=== PATIENT | female | born 1960 | race Caucasian/White ===

== ENCOUNTER → 2018-04-10 13:45 | Outpatient (CLI) | payer SELFPAY ==
--- NOTE | 2018-04-10 13:45 | EMB_PTH ---
PATIENT: MARLEN KEATING LOC: [facility] U#:[id number] AGE/SX: 64/F ROOM: RE04/10/[address]: Dr. Meir Mora MD : 1960 BED: DIS: SPEC #: [id number] RECD: 04/10/18 18:08 STATUS: SARA RUTHIE #: [id number] CHRISTI: 04/10/18 13:[address]: Meir Mora DEPT: SURGICAL PATHOLOGY RECD BY: Carlyle Rogers Tissues: Endometrium, NOS Procedures: Surgery Specimen Level IV HEADER OPERATION: Endometrial biopsy PRE-OP DIAGNOSIS: N95.0, N93.9 TISSUE SUBMITTED: Endometrial biopsy MICROSCOPIC DIAGNOSIS Endometrial biopsy: Proliferative endometrium. TWYLA:ibeth 04/12/18 MICROSCOPIC DESCRIPTION Slides are reviewed. GROSS DESCRIPTION Received is one container labeled with the patient's name and not further designated. The specimen consists of multiple irregular and mucoid fragments of light to dark sands soft tissue that in aggregate measure 2.5 x 2 x 0.2 cm. The specimen is totally submitted in one cassette. / AM:ibeth 04/11/18 TC:4 CPT: 07470
== END ==
PROVIDERS: Referring Provider Obstetrics & Gynecology; Visit Provider Obstetrics & Gynecology
DX: N95.0 Postmenopausal bleeding (principal); N93.9 Abnormal uterine and vaginal bleeding, unspecified
CPT/HCPCS: 88305

== ENCOUNTER 2018-06-10 09:47 | Day surgery (SDC) | payer SELFPAY ==
[2018-06-05 17:10] LABS: Hematocrit 39.5 % (37-47); Mean Corp Hgb Conc 32.9 g/gl (32-36); Mean Corpuscular Hgb 29.1 pg (27.0-32.0); Mean Corpuscular Volume 88.6 fL (81-99); Mean Platelet Vol. 10.5 fl (6.2-12.0); Platelet Count 239 K/mm3 (150-450); RBC Distribution Width CV 13.5 % (11.6-14.6); RBC Distribution Width SD 43.4 fl (35.1-43.9); Red Blood Count 4.46 M/mm3 (4.2-5.4); White Blood Count 5.2 K/mm3 (4.4-11.0)
[2018-06-05 17:12] LABS: Scan Indicated on CBC? Y/N NO
[2018-06-05 17:16] LABS: International Normalized Ratio 1.1; Prothrombin Time (Protime)PT. 13.8 SECONDS (11.7-14.9)
[2018-06-05 17:17] LABS: Partial Thromboplast Time 28.9 Seconds (24.1-36.2)
[2018-06-05 17:38] LABS: ALB/GLOB Ratio 1.1 RATIO (0.9-2.4); AST(SGOT) 16 U/L (15-37); Alanine Aminotransfer ALT/SGPT 13 U/L (13-56); Alkaline Phosphatase 60 U/L (45-117); Anion Gap 9 (5-15); BUN 14 mg/dL (7-18); BUN/Creat Ratio 15.8 RATIO (10-20); Calcium,Total 8.5 mg/dL (8.5-10.1); Chloride 105 mmol/L (98-107); Creatinine, Serum 0.89 mg/dL (0.55-1.02); EST Glomerular Filtration Rate 70 mL/min (>60); Est Glom Filt Rate - Afr Amer 85 mL/min (>60); Globulin 3.5 g/dL (2.2-4.2); Glucose 88 mg/dL (74-106); Potassium 3.7 mmol/L (3.5-5.1); Protein, Total 7.5 g/dL (6.4-8.2); Sodium Level 142 mmol/L (136-145)
--- NOTE | 2018-06-09 15:36 | PCM.HP.BLA ---
History and Physical Date of Admission: 06/10/18 Surgical History and Physical Gayle Arrieta, a 58 year old female 5 0 2 0 5, presents for D and C and hysteroscopy on June 10, 2018 at 11:20. -- GRAVEL WEIGHER Bleeding -- GRAVEL WEIGHER which began several weeks ago. Gayle claims it started suddenly. It occurs intermittantly. It is located in the lower abdomen. Gayle indicates some cramping. Gayle characterizes the cramping as sharp. Gayle characterizes the quality of bleeding as heavy. Additional comments are: Referred by Paige DING; Additional comments are: u/s at [facility] showed 7 cm uterus and 5 mm EM stripe. MEDICATIONS HISTORY: Current medications prescribed by our practice are: 1. Provera 10 mg tablet, One pill by mouth once a day ALLERGIES: No Known Allergies, Adhesive Tape and Rash Infections - Chicken pox, Mumps and Measles Illnesses - no serious past illnesses Accidents - None Hospitalizations - see surgery Review of Systems: GENERAL - Denies fever, or chills SKIN - Denies skin changes EYES - Denies visual changes EARS - Denies difficulty hearing NOSE - Denies nasal congestion or bleeding MOUTH - Denies sore throat or difficulty swallowing NECK - Denies pain or swelling RESPIRATORY - Denies shortness of breath or wheezing CARDIOVASCULAR - Denies palpitations or chest pain GASTROINTESTINAL - Denies nausea, vomiting, diarrhea, constipation GENITOURINARY - Denies dysuria, frequency of urination, incontinence of urine MUSCULOSKELETAL - Denies joint or muscle pain NEUROLOGICAL - Denies localized numbness or weakness PSYCHIATRIC - Denies depression or anxiety ENDOCRINE - Denies heat or cold intolerance, weight loss or gain HEMATO-IMMUNOLOGIC - Denies excessive bleeding with cuts SOCIAL HISTORY: Alcohol Use - None Smoking - Never Diet - no particular diet Lifestyle - moderate stress lifestyle and Exercise - active Seat Belt Use - always Employer - [employer] Illicit Drug Use - None Sexual Activity - Spouse-Sig Other Name - Mario Spouse-Sig Other Occupation - [employer] - Prior Tubal FAMILY HISTORY: MENSTRUAL HISTORY: LMP Known?- DefiniteAmount/Duration - 2 weeks, Regularity - Irregular, Frequency - variable days, LMP - 03/18/18, Age Onset Menarche - 15 PAST PREGNANCIES: Total Pregnancies - 7; Full Term Pregnancies - 5; Premature - 0; Abortions, Induced - 0; Abortions, Spontaneous - 2; Ectopics - 0; Multiple Births - 0; Living Children - 5 SURGICAL HISTORY: 1. 05/25/1992 ; Manuel Duff MD 2. 09/17/1993 ; Manuel Duff MD 3. 07/16/1996 ; Dr. Au 4. 01/21/1998 ; Dr. Ortega 5. 11/09/2000 and Tubal ; Dr. Au 6. 1978 and 2011 Hernia Repair ; Dr. Cullen PHYSICAL EXAM BP- 126/78 Sitting, Right arm, regular cuff Weight- 136.31881 lbs Height- 59.5 inch BMI:27.07 CONSTITUTIONAL - NAD, well nourished, and well developed SKIN - No rash, lesions, or ulcers HEENT - Normocephalic, PERRLA, EOMI NECK - No nodes, no nuchal rigidity and thyroid normal size and texture LYMPH NODES - Palpation of lymph nodes in neck and groins within normal limits LUNGS - CTA x2 without wheezes, crackles or rales CARDIAC - Regular rate and rhythm without rubs, murmurs, or gallops ABDOMEN - Without hepatosplenomegaly, distention, masses, rebound, or guarding; normal bowel sounds; no hernias EXTREMITIES - No edema or calf tenderness NEUROLOGICAL - Cranial nerves II-XII grossly intact PSYCHIATRIC - A and O to time, place, person, mood and affect External Genitial Vagina - non-tender without lesions Urethra/Urethral Meatus - non-tender Bladder - non-tender Vagina - vaginal woods are pink and moist without loss of rugae and no evidence of atropy and blood in vagina Cervix - without cervical motion tenderness and has normal size and features without evident lesions Uterus - enlarged uterus 10 wks, wt 175-275 g Adnexa - clear without masses or tenderness ASSESSMENT/PLAN: 1. GRAVEL WEIGHER Bleeding EMBx not conclusive. Uterus sounded to 9 cm but u/s at [facility] indicated 7 cm uterus. Will proceed with D and C and Hysteroscopy. Discussed RBAs.
[2018-06-10] VITALS (7 sets, daily range): BP systolic 100–123; BP diastolic 54–66; PULSE 63–85; RESP 14–16; TEMP 36.5–37.1; O2SAT 98–100; BMI 26.8
--- NOTE | 2018-06-10 11:20 | CER_PTH ---
PATIENT: MARLEN KEATING LOC: [facility] [place] U#:[id number] AGE/SX: 58/F ROOM: RE06/10/[address]: Dr. Meir Mora MD : 1960 BED: DIS: 06/10/2018 SPEC #: [id number] RECD: 06/10/18 15:37 STATUS: SARA RUTHIE #: [id number] CHRISTI: 06/10/18 11:[address]: Meir Mora DEPT: SURGICAL PATHOLOGY RECD BY: Vineet Rogers ENTERED: 06/11/18 12:05 SP TYPE: CERV OTHR DR: NIKKO Melgoza Tissues: A - Uterine cervix, NOS B - Endometrium, NOS Procedures: Surgery Specimen Level IV HEADER OPERATION: Hysteroscopy, dilation and curettage PRE-OP DIAGNOSIS: Postmenopausal bleeding TISSUE SUBMITTED: A - Endocervical curettings, B - Endometrial curettings MICROSCOPIC DIAGNOSIS A. Endocervical curettings: Scant desquamated benign ecto- and endocervical epithelial cells. B. Endometrial curettings: Fragments of inactive endometrium and blood clots. TWYLA:ibeth 06/12/18 COMMENT Clinical correlation and appropriate follow up are necessary. Please make reference to previous specimen ([id number]) endometrial biopsy with diagnosis of proliferative endometrium. MICROSCOPIC DESCRIPTION Slides are reviewed. GROSS DESCRIPTION A - Received in fixative is one container labeled with the patient's name and designated endocervical curettings. The specimen consists of a few fragments of mucoid tissue submitted for cell block preparation. B - Received in fixative is one container labeled with the patient's name and designated EMC. The specimen consists of multiple fragments of hemorrhagic mucoid tissue that in aggregate measure 3 x 2.5 x 0.2 cm. The specimen is totally submitted in one cassette. / TWYLA:ibeth 06/11/18 TC:4 CPT: 80591 x2
--- NOTE | 2018-06-10 12:23 | PCM.OPRPT ---
Report of Operation Date of Procedure: 06/10/18 Pre-Operative Diagnosis: Postmenopausal Bleeding Post-Operative Diagnosis: Postmenopausal Bleeding Surgery/Procedure Performed:: Hysteroscopy, Fractional Dilation and Curettage Description of Surgical Findings:: 8 cm endometrial cavity without polyps or fibroids present. Sharply anteverted and sounded to about 8 cm. Cervix high and vagina with little movement which would make robotic hysterectomy the method of choice should hysterectomy be necessary. Type of Anesthesia:: MAC Anesthesiologist: Jeanne Hooks Specimen's removed: Endometrial and endocervical curettings Estimated Blood Loss (mL): Minimal Fluids Replaced: Crystalloid Description of Procedure: Surgeon: Meir Mora MD, FACOG Indications: This is a 58 year old patient who has the above diagnosis. The patient has been counseled regarding the risk and indications of this procedure including the possibility of bleeding, infection, and injury to surrounding structures such as bowel bladder. All questions were answered and we consider the patient well-informed. Procedure: The patient was taken to the operating room where after induction of general anesthesia, she was placed in the dorsolithotomy position and prepped and draped in the usual sterile fashion. Anterior cervix was grasped with the tenaculum and dilated to about 4-5 mm. Endocervical curettings were obtained. A 3 mm hysteroscope was placed in the uterus of the above findings were noted. Cervix was dilated to about 7-8 mm and uterus was gently curetted removing all contents. Hysteroscope was reinserted and all material was noted to be removed. In the course of the procedure approximately 100 cc of saline distending media was used and virtually all of this was recovered. Patient tolerated procedure well was taken to recovery room in satisfactory condition sponge instrument and needle counts were all reportedly correct. Estimated blood loss for the case was minimal. Specimens to pathology was endometrial and endocervical curettings Grafts/Implants Used: None - Complications None - Admit VTE Documentation VTE Present on Admission: Yes VTE Mechan Device Prophylaxis: SCD's VTE Pharm Prophylaxis ordered?: No Reason prophylaxis not ordered:: Treatment Not Indicated
--- NOTE | 2018-06-10 12:27 | DCINST_ITS ---
Discharge Diet: No Restrictions Discharge Activity: Return to Normal Activity, May Shower, May Take a Tub Bath May resume sexual activity in: 2 weeks Call your doctor if you observe: Fever of 101 or Higher, Inability to urinate, Inability to have a bowel movement, Using more than one pad per hour Allergies/Adverse Reactions: Allergies adhesive tape Adverse Reaction (Verified 06/03/18 10:58) redness Medications to take at Discharge NK 06/03/18 Primary Care Physician: Paige Stoll PA [Primary Care Provider] - Test Results: Test results from this visit will be discussed in further detail at your follow- up appointment, if applicable. Please Follow Up With: Meir Mora MD When: 2-3 weeks
== END 2018-06-10 14:23 | disposition home or self-care (01) ==
LOC: SDC 09:50 → AC 09:53
PROVIDERS: Family Provider Physician Assistant; PCP Physician Assistant; Referring Provider Obstetrics & Gynecology; Visit Provider Obstetrics & Gynecology
PROC: 0UDB8ZZ Extraction of Endometrium, Via Natural or Artificial Opening Endoscopic (ICD-10-PCS; CPT 58558; principal; 2018-06-10 11:10)
DX: N95.0 Postmenopausal bleeding (principal)
CPT/HCPCS: 00952; 58558; 36415; 80053; 85027; 85610; 85730; 86850; 86900; 88305; J7120; J2405

== ENCOUNTER 2021-10-30 18:39 | Inpatient (IN) | payer OTHER, SELFPAY ==
[2021-10-30] VITALS (13 sets, daily range): BP systolic 107–150; BP diastolic 57–74; PULSE 61–117; RESP 12–20; TEMP 35.9–37.2; O2SAT 95–99; BMI 31.0; BMI 28.0
--- NOTE | 2021-10-30 18:54 | EKG12_ITS ---
Test Reason : Blood Pressure : / mmHG Vent. Rate : 108 BPM Atrial Rate : 108 BPM P-R Int : 184 ms QRS Dur : 104 ms QT Int : 338 ms P-R-T Axes : 051 006 034 degrees QTc Int : 452 ms Sinus tachycardia Possible Left atrial enlargement RSR' or QR pattern in V1 suggests right ventricular conduction delay Marked ST abnormality, possible lateral subendocardial injury Abnormal ECG Confirmed by MADELIN INFANTE, NICK ([id number]), assignment desk editor DEE PASCAL ([id number]) on 11/01/2021 8:43:45 AM Referred By: Confirmed By:NICK YUSUF MD
--- NOTE | 2021-10-30 18:55 | ED.VIS.CHEST ---
HPI History of Present Illness Chief Complaint: Chest Pain Narrative Narrative: 61-year-old female with history of hyperlipidemia presenting with chest pressure which has been ongoing for couple of hours. Patient states she took nothing for this. She states that the chest pressure is 7 of 10 and she feels like she cannot catch her breath. She denies fever, chills, body aches. She does not have any cardiac history. She has a history of GERD for which she is treated. She is never had a stress test. No history of DVT/PE and no risk factors. She does report that her family has cardiac disease however this is later in life in her 70s. [facility] Medical History GERD (gastroesophageal reflux disease) Home Medications NK 06/03/18 [History Last Taken Unknown] Allergy/AdvReac Type Severity Reaction Status Date / Time adhesive tape AdvReac redness Verified 10/30/21 18:42 Family History Other Heart disease Kidney disease Surgical History H/O hernia repair Social History Smoking Status: Never smoker ROS ROS ED Constitutional Constitutional ED: Denies chills or fever(s) Eyes Eyes: Denies blurry vision or change in vision ENT ENT ED: Denies rhinorrhea or sore throat Cardiovascular Cardiovascular: Reports as per HPI Respiratory/Chest Respiratory/Chest: Reports dyspnea; Denies cough Gastrointestinal Gastrointestinal: Denies abdominal pain or constipation Genitourinary Genitourinary ED: Denies dysuria Musculoskeletal Musculoskeletal: Denies arthralgias Integumentary Denies abscess Neurologic Neurologic: Denies headache(s) or paresthesias Psychiatric Psychiatric: Denies anxiety or depression EXAM Physical Exam Const Vital Signs: 10/30/21 18:40 10/30/21 18:44 10/30/21 18:56 Temperature 96.7 F L Temperature Source Temporal Pulse Rate 117 H Respiratory Rate 20 H Respiratory Effort Normal Non-Labored Blood Pressure 150/72 H Blood Pressure Mean 98 Pulse Ox 99 99 Oxygen Delivery Method Room Air Room Air 10/30/21 19:07 10/30/21 19:12 10/30/21 19:39 Temperature Temperature Source Pulse Rate 91 96 96 Respiratory Rate 18 Respiratory Effort Blood Pressure 122/62 H 141/74 H 134/63 H Blood Pressure Mean 86 Pulse Ox 98 Oxygen Delivery Method Room Air 10/30/21 21:00 10/30/21 21:48 Temperature 98.9 F Temperature Source Temporal Pulse Rate 79 79 Respiratory Rate 18 16 Respiratory Effort Blood Pressure 125/65 H 122/59 H Blood Pressure Mean 85 80 Pulse Ox 95 98 Oxygen Delivery Method Room Air Room Air Positive well nourished General Appearance ED: NAD; Negative for pallor HEENT Reports moist mucous membranes normocephalic and atraumatic Eyes PERRL General Eye ED: Negative for pale conjunctiva or scleral icterus Resp normal respiratory effort and clear to auscultation bilaterally Effort and Inspection: Negative for respiratory distress Cardio regular rhythm Rate: tachycardic GI normal to inspection, nondistended, normoactive bowel sounds Neuro oriented x3 and CN's II-XII intact bilaterally Sensorium / Orientation: awake Psych mental status grossly normal Skin General Skin Exam: Negative for jaundice or pallor Heart Score History: Moderately Suspicious ECG: Normal Age: >45 - <65 years Risk Factors: 1 or 2 Risk Factors Troponin: >1 - <3 Normal Limit Score: 4 MDM MDM MDM Narrative Medical decision making narrative: Patient presented with chest pain and shortness of breath. Her initial EKG on my interpretation was sinus rhythm with a ventricular rate of 108 bpm with right bundle branch block noted. There is some artifact in V3 and V5. I had the EKG repeated and it does appear to show sinus rhythm ventricular rate of 91 bpm. Right bundle mervin block noted. There may be some slight depression in V4 through V6. CBC unremarkable. Renal function electrolytes normal with exception of potassium of 2.7. I attempted to replete these orally however the patient kept vomiting. She was given Zofran twice and then Phenergan IM. Chest x-ray on my interpretation shows no acute cardiopulmonary process and the radiologist does agree. D-dimer is negative at 0.27. High-sensitivity troponin initially was 47. At 2 hours this had increased to 122. Patient still claims she is having chest pain at 5/10. Initially she was treated with nitroglycerin however this seemed to make her chest pain worse and she vomited. For this reason she was given morphine 4 mg IV. She did complain of pain again and this was repeated. I spoke with Dr. Gonzalez who recommended admission to the ICU since she is does not have her pain controlled and her troponins are going up. Patient started on heparin drip in the ER. She will also need a potassium repleted peripherally. Discussed with hospitalist for admission. Impression: 1 chest pain 2 NSTEMI 3. Hypokalemia Lab Data Attestation: I reviewed the patient's lab results. Labs: Laboratory Results - last 24 hr 10/30/21 10/30/21 10/30/21 18:45 18:45 18:45 WBC 7.3 RBC 4.72 Hgb 15.0 Hct 42.4 MCV 89.8 MCH 31.8 MCHC 35.4 RDW Std Deviation 39.7 RDW Coeff of Elisha 12.0 Plt Count 253 MPV 10.2 Immature Gran % (Auto) 0.400 Neut % (Auto) 52.6 Lymph % (Auto) 37.9 [place] % (Auto) 7.1 Eos % (Auto) 1.9 Baso % (Auto) 0.1 Absolute Neuts (auto) 3.8 Absolute Lymphs (auto) 2.76 Nucleated RBC % 0 PT INR APTT D-Dimer Quant (PE/DVT) < 0.27 L Sodium 137 Potassium 2.7 L* Chloride 101 Carbon Dioxide 26.0 Anion Gap 10 BUN 13 Creatinine 0.77 Estim Creat Clear Calc 86.56 Est GFR (MDRD) Af Amer 99 Est GFR (MDRD) Non-Af 82 BUN/Creatinine Ratio 17.0 Glucose 119 H Calcium 8.7 Troponin I High Sens 47 10/30/21 10/30/21 18:45 21:05 WBC RBC Hgb Hct MCV MCH MCHC RDW Std Deviation RDW Coeff of Elisha Plt Count MPV Immature Gran % (Auto) Neut % (Auto) Lymph % (Auto) [place] % (Auto) Eos % (Auto) Baso % (Auto) Absolute Neuts (auto) Absolute Lymphs (auto) Nucleated RBC % PT 12.8 INR 1.0 APTT 27.6 D-Dimer Quant (PE/DVT) Sodium Potassium Chloride Carbon Dioxide Anion Gap BUN Creatinine Estim Creat Clear Calc Est GFR (MDRD) Af Amer Est GFR (MDRD) Non-Af BUN/Creatinine Ratio Glucose Calcium Troponin I High Sens 122 H* Radiography Diagnostic Testing: Clinical Impression(s) from Imaging Studies Chest X-Ray 10/30/21 19:00 IMPRESSION: No acute cardiopulmonary process. Electronically Signed: Mack Clarke MD at 19:52 EDT , Discharge Plan Disposition Disposition: Acute Care [facility] Discharge Date/Time: 10/30/21 22:34
--- NOTE | 2021-10-30 18:56 | EKG12_ITS ---
Test Reason : cp Blood Pressure : / mmHG Vent. Rate : 091 BPM Atrial Rate : 091 BPM P-R Int : 144 ms QRS Dur : 098 ms QT Int : 378 ms P-R-T Axes : 064 018 052 degrees QTc Int : 464 ms Normal sinus rhythm RSR' or QR pattern in V1 suggests right ventricular conduction delay Nonspecific ST abnormality Abnormal ECG Confirmed by MADELIN INFANTE, NICK ([id number]), video editor DEE PASCAL ([id number]) on 11/01/2021 8:46:11 AM Referred By: Daniel Confirmed By:NICK YUSUF MD
--- NOTE | 2021-10-30 19:00 | RAD_ITS ---
STUDY: X-RAY CHEST REASON FOR EXAM: Female, 61 years old. chest pain TECHNIQUE: 1 view COMPARISON: None. FINDINGS: Cardiomediastinal silhouette is unremarkable. Costophrenic angles are sharp. Lungs are clear. The trachea is midline. There is no pneumothorax. The bones are grossly intact. RAD/Chest 1 View (Portable) IMPRESSION: No acute cardiopulmonary process. Electronically Signed: Mack Clarke MD at 19:52 EDT ,
--- NOTE | 2021-10-30 19:00 | EKG12_ITS ---
Test Reason : cp repeat Blood Pressure : / mmHG Vent. Rate : 114 BPM Atrial Rate : 114 BPM P-R Int : 136 ms QRS Dur : 096 ms QT Int : 480 ms P-R-T Axes : 052 013 043 degrees QTc Int : 661 ms Sinus tachycardia RSR' or QR pattern in V1 suggests right ventricular conduction delay ST & T wave abnormality, consider lateral ischemia Prolonged QT Abnormal ECG Confirmed by MADELIN INFANTE, NICK ([id number]), scientific editor DEE PASCAL ([id number]) on 11/01/2021 8:44:08 AM Referred By: Daniel Confirmed By:NICK YUSUF MD
[2021-10-30 19:06] LABS: Absolute Lymphocyte Count 2.76 X10^3/uL (0.83-4.51); Absolute Neutrophil Count 3.8 X10^3/uL (2.0-7.7); Basophil# 0.01 X10^3/uL; Basophil% 0.1 % (0-1); Eosinophil# 0.14 X10^3/uL; Eosinophils% 1.9 % (0-5); Hematocrit 42.4 % (37-47); Lymphocyte # 2.76 X10^3/ul (0.83-4.51); Lymphocyte % 37.9 % (19-41); Mean Corp Hgb Conc 35.4 g/dL (32-36); Mean Corpuscular Hgb 31.8 pg (27.0-32.0); Mean Corpuscular Volume 89.8 fL (81-99); Mean Platelet Vol. 10.2 fl (6.2-12.0); Monocyte# 0.52 X10^3/uL; Monocyte% 7.1 % (0-10); NRBC Flagged by Analyzer 0 % (0-5); Neutrophil # 3.82 X10^3/uL (2.7-7.7); Neutrophil % 52.6 % (47-70); Platelet Count 253 K/mm3 (150-450); RBC Distribution Width SD 39.7 fl (35.1-43.9); Red Blood Count 4.72 M/mm3 (4.2-5.4); White Blood Count 7.3 K/mm3 (4.4-11.0)
[2021-10-30] MEDS: Aspirin 81 MG TAB.CHEW 324 MG PO (19:07)
[2021-10-30] MEDS: Nitroglycerin SL (ED/IMG/CATH) 0.4 MG TABLET SL ×2 (19:07→19:12)
[2021-10-30 19:17] LABS: D-Dimer Quantitative (DVT/PE) < 0.27 FEU/ug/m (0.27-0.49)
[2021-10-30] MEDS: Morphine 4 MG/ML Syringe IV ×2 (19:28→20:45)
[2021-10-30] MEDS: Ondansetron 4 MG/2 ML Vial IV ×2 (19:28→20:45)
[2021-10-30 19:29] LABS: Anion Gap 10 (5-15); BUN 13 mg/dL (7-18); Calcium,Total 8.7 mg/dL (8.5-10.1); Chloride 101 mmol/L (98-107); Creatinine, Serum 0.77 mg/dL (0.55-1.02); EST Glomerular Filtration Rate 82 mL/min (>60); Est Glom Filt Rate - Afr Amer 99 mL/min (>60); Estimated Creatinine Clearance 86.56 ml/min; Glucose 119 mg/dL (74-106); Potassium 2.7 mmol/L (3.5-5.1); Sodium Level 137 mmol/L (136-145); Troponin-I HS (w/2H Reflex) 47 pg/mL (3.0-54.0)
[2021-10-30] MEDS: Potassium Chloride Oral Soln 20 MEQ/15 ML UDC 40 MEQ PO (19:59)
--- NOTE | 2021-10-30 20:48 | ED.RN ---
Pt c/o nausea and chest pain that started again. MD notified, orders placed for zofran and morphine.
[2021-10-30 21:00] LABS: Reflex Troponin-HS? (from REC) Y
[2021-10-30 21:39] LABS: Troponin-I HS 122 pg/mL (3.0-54.0)
--- NOTE | 2021-10-30 21:39 | ED.RN ---
CRITICAL TROP CALLED 122 DR[address] SANTIAGO AWARE
--- NOTE | 2021-10-30 21:56 | HP.PCM.HOS_ITS ---
HPI - General General Date of Admission: 10/30/21 Date of Service: 10/30/21 Chief Complaint: CHEST PAIN HPI Narrative MARLEN KEATING, is a 61 F with a significant history of GERD who presents to the emergency department with substernal chest pressure that started about an hour and a half before presentation. Her chest pressure radiated to her throat where she has a feeling of a lump. Her chest pain is episodic. She rates it as 8 on a scale of 1-10. Associated with her symptoms is shortness of breath. At the emergency department she was given nitroglycerin but that did not help with her pain. She did end up having multiple episodes of nausea and vomiting after taking the nitroglycerin. Family is questioning the involvement of food poisoning as his symptoms started about 4 hours after going to a friend's place to eat. However her ate the same food and does not have similar symptoms. [facility] Medical History GERD (gastroesophageal reflux disease) Home Medications NK 06/03/18 [History Last Taken Unknown] Allergy/AdvReac Type Severity Reaction Status Date / Time adhesive tape AdvReac redness Verified 10/30/21 18:42 Family History Other Heart disease Kidney disease Surgical History H/O hernia repair Social History Smoking Status: Never smoker ROS ROS Narrative Pertinent positives and pertinent negatives as noted in HPI. All other systems were reviewed and are negative. Vital Signs Vital Signs Vital Signs: 10/30/21 18:40 10/30/21 18:44 10/30/21 18:56 Temperature 96.7 F L Temperature Source Temporal Pulse Rate 117 H Respiratory Rate 20 H Respiratory Effort Normal Non-Labored Blood Pressure 150/72 H Blood Pressure Mean 98 Pulse Ox 99 99 Oxygen Delivery Method Room Air Room Air 10/30/21 19:07 10/30/21 19:12 10/30/21 19:39 Temperature Temperature Source Pulse Rate 91 96 96 Respiratory Rate 18 Respiratory Effort Blood Pressure 122/62 H 141/74 H 134/63 H Blood Pressure Mean 86 Pulse Ox 98 Oxygen Delivery Method Room Air 10/30/21 21:00 10/30/21 21:48 Temperature 98.9 F Temperature Source Temporal Pulse Rate 79 79 Respiratory Rate 18 16 Respiratory Effort Blood Pressure 125/65 H 122/59 H Blood Pressure Mean 85 80 Pulse Ox 95 98 Oxygen Delivery Method Room Air Room Air Weight Weight: 69.7 kg Body Mass Index (BMI) 31.0 Physical Exam Narrative Physical exam: General: Patient in bed uncomfortable from nausea. Head: Normocephalic, atraumatic, no tenderness Eyes: Vision is grossly intact. EOMI ENT, no trauma, moist mucous membranes, no rhinorrhea Neck: Nontender, full range of motion, no spinal tenderness, deformities, step- off CVS: Regular rate and rhythm. S1-S2 present. No murmur, gallop or rub. Respiratory : clear to auscultation bilaterally, chest wall nontender, no wheezing Abdomen: Soft, nontender, nondistended, normal bowel sounds, no masses : Deferred Back: Nontender, no CVA tenderness, no midline spinal tenderness, deformities, step-offs Extremities: Nontender full range of motion, no trauma Skin: Normal color, no trauma, abrasions Neuro: Alert, oriented, cranial nerves II through XII grossly intact. Psychiatry: Normal mood. Normal affect. Not depressed. Not anxious. Results Lab / Micro Data Result Diagrams: 10/30/21 18:45 10/30/21 18:45 Labs: Laboratory Results - last 24 hr 10/30/21 18:45: WBC 7.3, RBC 4.72, Hgb 15.0, Hct 42.4, MCV 89.8, MCH 31.8, MCHC 35.4, RDW Std Deviation 39.7, RDW Coeff of Elisha 12.0, Plt Count 253, MPV 10.2, Immature Gran % (Auto) 0.400, Neut % (Auto) 52.6, Lymph % (Auto) 37.9, [place] % (Auto) 7.1, Eos % (Auto) 1.9, Baso % (Auto) 0.1, Absolute Neuts (auto) 3.8, Absolute Lymphs (auto) 2.76, Nucleated RBC % 0 10/30/21 18:45: D-Dimer Quant (PE/DVT) < 0.27 L 10/30/21 18:45: Sodium 137, Potassium 2.7 L*, Chloride 101, Carbon Dioxide 26.0, Anion Gap 10, BUN 13, Creatinine 0.77, Estim Creat Clear Calc 86.56, Est GFR (MDRD) Af Amer 99, Est GFR (MDRD) Non-Af 82, BUN/Creatinine Ratio 17.0, Glucose 119 H, Calcium 8.7, Troponin I High Sens 47 10/30/21 21:05: Troponin I High Sens 122 H* Radiology Impression Chest X-Ray 10/30/21 19:00 IMPRESSION: No acute cardiopulmonary process. Electronically Signed: Mack Clarke MD at 19:52 EDT , Assessment & Plan Assessment/Plan (1) NSTEMI, initial episode of care: PLAN: Plan NSTEMI Emergency department the discussed the case with cardiology interventionalist who recommended ICU admission. Patient will be admitted to the intensive care unit accordingly. Actual CXR image was independently visualized. No acute cardiopulmonary process was noted. Actual EKG tracing was independently visualized. EKG tracing showed ST depressions in lead III, V3, V5 and V6. Anterior inversions in V4 V5 and V6. Patient was given aspirin 324 mg in the emergency department. ASA 81 mg p.o. daily ordered Morphine as needed for pain ordered We will check lipid panel. Initial high-sensitivity troponin was 47. Repeat was 122, trend. Statin: High intensity statin ordered. Anticoagulation: Heparin drip started at the emergency department and continued. Stat EKG as needed for chest pain. Keep npo for possible heart cath. Hypokalemia Potassium of 2.7 at the emergency department. Given p.o. potassium in the emergency department which patient might have vomited. IV potassium ordered. Supportive treatment with IV fluids. Check magnesium level. DVT prophylaxis ordered. Charges/Coding Visit Charges Inpatient E&M: 72920 Init Hosp L3
[2021-10-30 22:13] LABS: Partial Thromboplast Time 27.6 Seconds (24.1-36.2); Prothrombin Time (Protime)PT. 12.8 SECONDS (11.7-14.9)
[2021-10-30] MEDS: HEPARIN/D5w 25,000 UNITS 25,000 UNITS/250 ML IV.SOLN. 10 UNITS CONT INF (22:27)
[2021-10-30] MEDS: proMETHazine 25 MG/ML Syringe 12.5 MG IM (22:32)
--- NOTE | 2021-10-30 23:00 | EKG12_ITS ---
Test Reason : CP Blood Pressure : / mmHG Vent. Rate : 063 BPM Atrial Rate : 063 BPM P-R Int : 142 ms QRS Dur : 092 ms QT Int : 408 ms P-R-T Axes : 059 000 026 degrees QTc Int : 417 ms Normal sinus rhythm Incomplete right bundle branch block Confirmed by BAILEE INFANTE, MEL ([id number]), business editor DEE PASCAL ([id number]) on 11/02/2021 11:02:05 AM Referred By: STEPHANI Confirmed By:MEL MOROCHO MD
[2021-10-30] MEDS: Potassium Chloride 10mEq/100mL 10 MEQ/100 ML IV.SOLN. 100 MEQ IV BOLUS (23:28)
[2021-10-30] MEDS: 0.9% Normal Saline 1,000 ML 100 ML IV (23:28)
[2021-10-31] VITALS (29 sets, daily range): BP systolic 99–133; BP diastolic 46–110; PULSE 56–93; RESP 11–31; TEMP 36.6; O2SAT 95–99
[2021-10-31] MEDS: Potassium Chloride 10mEq/100mL 10 MEQ/100 ML IV.SOLN. 100 MEQ IV BOLUS ×3 (00:30→03:08)
[2021-10-31 01:41] LABS: Troponin-I HS 129 pg/mL (3.0-54.0)
[2021-10-31 04:55] LABS: Absolute Lymphocyte Count 1.27 X10^3/uL (0.83-4.51); Absolute Neutrophil Count 9.9 X10^3/uL (2.0-7.7); Basophil# 0.01 X10^3/uL; Basophil% 0.1 % (0-1); Hemoglobin 13.3 g/dL (12.0-15.0); Lymphocyte # 1.27 X10^3/ul (0.83-4.51); Lymphocyte % 10.7 % (19-41); Mean Corp Hgb Conc 33.3 g/dL (32-36); Mean Corpuscular Hgb 30.4 pg (27.0-32.0); Mean Corpuscular Volume 91.5 fL (81-99); Mean Platelet Vol. 9.7 fl (6.2-12.0); Monocyte# 0.62 X10^3/uL; Monocyte% 5.2 % (0-10); NRBC Flagged by Analyzer 0 % (0-5); Neutrophil # 9.91 X10^3/uL (2.7-7.7); Neutrophil % 83.6 % (47-70); Platelet Count 236 K/mm3 (150-450); RBC Distribution Width CV 12.1 % (11.6-14.6); RBC Distribution Width SD 40.9 fl (35.1-43.9); Red Blood Count 4.37 M/mm3 (4.2-5.4); White Blood Count 11.9 K/mm3 (4.4-11.0)
[2021-10-31 05:14] LABS: Anion Gap 4 (5-15); BUN 9 mg/dL (7-18); BUN/Creat Ratio 12.4 RATIO (10-20); Calcium,Total 8.6 mg/dL (8.5-10.1); Chloride 107 mmol/L (98-107); Cholesterol 303 mg/dL (200); Creatinine, Serum 0.72 mg/dL (0.55-1.02); EST Glomerular Filtration Rate 87 mL/min (>60); Est Glom Filt Rate - Afr Amer 106 mL/min (>60); Estimated Creatinine Clearance 60.43 ml/min; Glucose 124 mg/dL (74-106); High Density Lipoprotein 58 mg/dL; Potassium 4.3 mmol/L (3.5-5.1); Sodium Level 140 mmol/L (136-145); Triglycerides 65 mg/dL; Very Low Density Lipoprotein 13 mg/dL (5-40)
[2021-10-31] MEDS: Heparin Injection (Vial) 5,000 UNIT/ML VIAL IV (05:59)
--- NOTE | 2021-10-31 07:22 | PN.HOSP_ITS ---
Subjective Subjective Patient is a 61-year-old female who presented with chest pain. Was found to have elevated troponin as well as ischemic changes on EKG consistent with acute non-STEMI admitted to the intensive care unit for further management Objective Data Objective Data Vital Signs: Vital Signs Temp Pulse Resp BP Pulse Ox O2 Del Method 96.9 F L 63 11 L 102/60 96 Room Air 10/30/21 22:49 10/31/21 07:18 10/31/21 07:04 10/31/21 07:04 10/31/21 07:04 10/31/21 07:04 Oxygen Delivery Method Room Air Weight: 63.7 kg Body Mass Index (BMI) 28.0 Intake & Output: Intake and Output for Last 24 Hours 10/29/21 10/30/21 10/31/21 23:59 23:59 23:59 Intake Total 475.5 / 475.5 Balance 475.5 / 475.5 Lab / Micro Data Result Diagrams: 10/31/21 04:45 10/31/21 04:45 Labs: Laboratory Results - last 24 hr 10/30/21 18:45: WBC 7.3, RBC 4.72, Hgb 15.0, Hct 42.4, MCV 89.8, MCH 31.8, MCHC 35.4, RDW Std Deviation 39.7, RDW Coeff of Elisha 12.0, Plt Count 253, MPV 10.2, Immature Gran % (Auto) 0.400, Neut % (Auto) 52.6, Lymph % (Auto) 37.9, [place] % ( Auto) 7.1, Eos % (Auto) 1.9, Baso % (Auto) 0.1, Absolute Neuts (auto) 3.8, Absolute Lymphs (auto) 2.76, Nucleated RBC % 0 10/30/21 18:45: D-Dimer Quant (PE/DVT) < 0.27 L 10/30/21 18:45: Sodium 137, Potassium 2.7 L*, Chloride 101, Carbon Dioxide 26.0, Anion Gap 10, BUN 13, Creatinine 0.77, Estim Creat Clear Calc 86.56, Est GFR (MDRD) Af Amer 99, Est GFR (MDRD) Non-Af 82, BUN/Creatinine Ratio 17.0, Glucose 119 H, Calcium 8.7, Troponin I High Sens 47 10/30/21 18:45: PT 12.8, INR 1.0, APTT 27.6 10/30/21 21:05: Troponin I High Sens 122 H* 10/31/21 01:00: Troponin I High Sens 129 H* 10/31/21 04:45: WBC 11.9 H, RBC 4.37, Hgb 13.3, Hct 40.0, MCV 91.5, MCH 30.4, MCHC 33.3 D, RDW Std Deviation 40.9, RDW Coeff of Elisha 12.1, Plt Count 236, MPV 9.7, Immature Gran % (Auto) 0.400, Neut % (Auto) 83.6 H, Lymph % (Auto) 10.7 L, [place] % (Auto) 5.2, Eos % (Auto) 0.0, Baso % (Auto) 0.1, Absolute Neuts (auto) 9.9 H, Absolute Lymphs (auto) 1.27, Nucleated RBC % 0 10/31/21 04:45: Sodium 140, Potassium 4.3, Chloride 107, Carbon Dioxide 29.0, Anion Gap 4 L, BUN 9, Creatinine 0.72, Estim Creat Clear Calc 60.43, Est GFR (MDRD) Af Amer 106, Est GFR (MDRD) Non-Af 87, BUN/Creatinine Ratio 12.4, Glucose 124 H, Calcium 8.6, Magnesium 2.0, Triglycerides 65, Cholesterol 303 H, LDL Cholesterol 232 H, VLDL Cholesterol 13, HDL Cholesterol 58 10/31/21 04:45: APTT 45.0 H Radiography Diagnostic Testing: Radiology Impression Chest X-Ray 10/30/21 19:00 IMPRESSION: No acute cardiopulmonary process. Electronically Signed: Mack Clarke MD at 19:52 EDT , Physical Exam Narrative GENERAL: cooperative HEENT: Atraumatic; EYES; Anicteric, Normal Conjunctiva NECK; supple, normal thyroid, RESPIRATORY: Diminished to auscultation CARDIOVASCULAR: Regular S1 S2, GI: soft, normoactive bowel sounds, : No Renal angle tenderness; EXTREMITIES: No edema, no clubbing, MUSCULOSKELETAL: no muscle wasting NEURO: Awake; no lateralizing signs. SKIN: No Rash PSYCH; Flat affect Assessment & Plan Assessment/Plan (1) NSTEMI, initial episode of care: PLAN: Plan Patient is a 61-year-old female who presented with chest pain. Was found to have elevated troponin as well as ischemic changes on EKG consistent with acute non-STEMI admitted to the intensive care unit for further management 1. Acute non-STEMI ? Patient has been admitted to the intensive care unit currently being managed with systemic anticoagulation with heparin, high-dose statin therapy, aspirin therapy. Consult placed to cardiology with plans for patient to undergo left heart catheterization with intervention if warranted 2. Hypokalemia ? Corrected per protocol with serial potassium levels ordered 3. Dyspepsia ? Patient to undergo work-up as outpatient 4. DVT prophylaxis ? Patient is on heparin Charges/Coding Visit Charges Inpatient E&M: 37198 Subs Hosp L3
[2021-10-31] MEDS: 0.9% Normal Saline 1,000 ML 100 ML IV (08:09)
[2021-10-31] MEDS: Aspirin E.C. 81 MG Tablet PO (08:10)
--- NOTE | 2021-10-31 13:35 | CASEMGMT ---
RN JLUIS Face to Face with patient for initial transition planning/care coordination assessment. RN CM introduced self and role at [facility]. Patient lying in bed, alert and oriented, at bedside. Patient willing to participate in assessment and is able to answer all questions appropriately. Care providers, pharmacy, and demographics verified. Patient wishes to discharge home, denies need for home health at this time. Patient states she has no further needs or concerns at this time. CM to follow for discharge planning needs that may arise. PCP: Jerman Specialists: none Preferred Pharmacy: [facility] retail at discharge. Insurance: none Prescription Benefit: none Living Will/HPOA: none LNOK: Living Arrangements: Patient lives with in a 2 story home. Patient states she is normally independent and ambulates stairs. Transportation: self, DME/HHC: Patient denies DME in the home. No previous HHC or SNF. Disposition Plan: Patient to discharge home with family support and follow-up plans in place. Mayda GOLDMAN, RN, CM
--- NOTE | 2021-10-31 15:45 | CON.PCM.CA_ITS ---
Assessment & Plan Assessment/Plan (1) NSTEMI, initial episode of care: PLAN: She did have mildly elevated cardiac enzymes as well as continued chest discomfort. She was counseled and underwent a cardiac catheterization today which demonstrated essentially normal coronary arteries. The distal posterior descending artery appeared however to have an intramyocardial portion which may be responsible for some of the discomfort. * Would recommend low-dose calcium channel rosalia (2) Hyperlipemia: PLAN: She does have significant hyperlipidemia with an LDL over 232. She also has xanthelasma. I would recommend that we start her on Lipitor 80 mg a day. We will follow her as an outpatient. Thank you for allowing me to participate in the care of your patient. Please don't hesitate to call if any issues arise. HPI Consult Data Date of Consult: 10/31/21 HPI Narrative HPI Narrative: MARLEN KEATING, is a 61 F who presents with chest discomfort to the emergency room as well as abdominal discomfort. Her EKG was normal when she presented to the emergency room however her cardiac enzymes were noted to be mildly abnormal and she continued to have chest pain through the night. She has had no dizziness or diaphoresis no near syncope or syncope she does not have any previous cardiac history. [facility] Medical History GERD (gastroesophageal reflux disease) Home Medications NK 06/03/18 [History Last Taken Unknown] Allergy/AdvReac Type Severity Reaction Status Date / Time adhesive tape AdvReac redness Verified 10/30/21 18:42 Family History Other Heart disease Kidney disease Surgical History H/O hernia repair Social History Smoking Status: Never smoker ROS Constitutional Constitutional: Denies fever(s) or weight loss Eyes Eyes: Reports systems reviewed and no addt'l complaints, except as documented ENT HEENT: Reports systems reviewed and no addt'l complaints, except as documented Cardiovascular Cardiovascular: Reports chest pain at rest and chest pain with activity; Denies dyspnea at rest, dyspnea on exertion, edema, palpitations or paroxysmal nocturnal dyspnea Respiratory/Chest Respiratory/Chest: Denies dyspnea on exertion, productive cough, shortness of breath at rest or shortness of breath with exertion Gastrointestinal Gastrointestinal: Denies change in bowel habits, nausea, vomiting or weight keller ges Genitourinary Genitourinary: Denies difficulty urinating Musculoskeletal Musculoskeletal: Denies joint stiffness or muscle weakness Integumentary Integumentary: Denies lesions Neurologic Neurologic: Denies dizziness or syncope Psychiatric Psychiatric: Denies anxiety Endocrine Endocrinology: Denies excessive sweating or fatigue Hematologic/Lymphatic Hematologic/Lymphatic: Denies anemia Allergic/Immunologic Allergic/Immunologic: Denies seasonal rhinorrhea Physical Exam Const alert, oriented x3 and no apparent distress General Appearance: cooperative HEENT hearing grossly normal bilaterally Head and Scalp: atraumatic Eyes EOMs intact bilaterally Neck General: normal visual inspection Chest inspection of chest normal and palpation of chest normal Resp normal respiratory effort Auscultation: clear to auscultation bilaterally Cardio regular rate, regular rhythm, S1 normal heart sound and S2 normal heart sound Jugular Venous Distention: JVD GI normal to inspection, nondistended, normoactive bowel sounds Extremity normal capillary refill and no pedal edema Peripheral Pulses: Yes pulses 2+ throughout and femoral pulses present Skin no rashes or lesions noted Neuro oriented x3 and CN's II-XII intact bilaterally Psych Appearance: grossly normal and appropriate Risk Stratification Risk Stratification Applicable: Yes Age >/= 65: No >/= 3 CAD Risk Factors (HTN, HLD, DM, family hx of CAD, or current smoker): No Aspirin Use in the Past 7 Days: No Severe Angina (>/= episodes in 24 hours): No EKG ST Changes >/= 0.5mm: No Positive Cardiac Marker: No MARIA E Risk Stratification Score: 0 MARIA E % Risk: 5% Risk Objective Data Vital Signs: Vital Signs Temp Pulse Resp BP Pulse Ox O2 Del Method 97.8 F 70 15 128/63 H 97 Room Air 10/31/21 12:00 10/31/21 14:00 10/31/21 14:00 10/31/21 14:00 10/31/21 14:00 10/31/21 14:00 Oxygen Delivery Method Room Air Weight: 140 lb 6.951 oz Body Mass Index (BMI) 28.0 Intake & Output: Intake and Output for Last 24 Hours 10/29/21 10/30/21 10/31/21 23:59 23:59 23:59 Intake Total 1451.83 / 1451.83 Balance 1451.83 / 1451.83 Lab / Micro Data Result Diagrams: 10/31/21 04:45 10/31/21 04:45 Labs: Laboratory Results - last 24 hr 10/30/21 18:45: WBC 7.3, RBC 4.72, Hgb 15.0, Hct 42.4, MCV 89.8, MCH 31.8, MCHC 35.4, RDW Std Deviation 39.7, RDW Coeff of Elisha 12.0, Plt Count 253, MPV 10.2, Immature Gran % (Auto) 0.400, Neut % (Auto) 52.6, Lymph % (Auto) 37.9, [place] % (Auto) 7.1, Eos % (Auto) 1.9, Baso % (Auto) 0.1, Absolute Neuts (auto) 3.8, Absolute Lymphs (auto) 2.76, Nucleated RBC % 0 10/30/21 18:45: D-Dimer Quant (PE/DVT) < 0.27 L 10/30/21 18:45: Sodium 137, Potassium 2.7 L*, Chloride 101, Carbon Dioxide 26.0, Anion Gap 10, BUN 13, Creatinine 0.77, Estim Creat Clear Calc 86.56, Est GFR (MDRD) Af Amer 99, Est GFR (MDRD) Non-Af 82, BUN/Creatinine Ratio 17.0, Glucose 119 H, Calcium 8.7, Troponin I High Sens 47 10/30/21 18:45: PT 12.8, INR 1.0, APTT 27.6 10/30/21 21:05: Troponin I High Sens 122 H* 10/31/21 01:00: Troponin I High Sens 129 H* 10/31/21 04:45: WBC 11.9 H, RBC 4.37, Hgb 13.3, Hct 40.0, MCV 91.5, MCH 30.4, MCHC 33.3 D, RDW Std Deviation 40.9, RDW Coeff of Elisha 12.1, Plt Count 236, MPV 9.7, Immature Gran % (Auto) 0.400, Neut % (Auto) 83.6 H, Lymph % (Auto) 10.7 L, [place] % (Auto) 5.2, Eos % (Auto) 0.0, Baso % (Auto) 0.1, Absolute Neuts (auto) 9.9 H, Absolute Lymphs (auto) 1.27, Nucleated RBC % 0 10/31/21 04:45: Sodium 140, Potassium 4.3, Chloride 107, Carbon Dioxide 29.0, Anion Gap 4 L, BUN 9, Creatinine 0.72, Estim Creat Clear Calc 60.43, Est GFR (MDRD) Af Amer 106, Est GFR (MDRD) Non-Af 87, BUN/Creatinine Ratio 12.4, Glucose 124 H, Calcium 8.6, Magnesium 2.0, Triglycerides 65, Cholesterol 303 H, LDL Cholesterol 232 H, VLDL Cholesterol 13, HDL Cholesterol 58 10/31/21 04:45: APTT 45.0 H Cardiology Labs/Tests 10/30/21 18:45: WBC 7.3, RBC 4.72, Hgb 15.0, Hct 42.4, MCV 89.8, MCH 31.8, MCHC 35.4, Plt Count 253, MPV 10.2, Immature Gran % (Auto) 0.400, Neut % (Auto) 52.6, Lymph % (Auto) 37.9, [place] % (Auto) 7.1, Eos % (Auto) 1.9, Baso % (Auto) 0.1, Absolute Neuts (auto) 3.8, Nucleated RBC % 0 10/30/21 18:45: D-Dimer Quant (PE/DVT) < 0.27 L 10/30/21 18:45: Sodium 137, Potassium 2.7 L*, Chloride 101, Carbon Dioxide 26.0, Anion Gap 10, BUN 13, Creatinine 0.77, Est GFR (MDRD) Af Amer 99, Est GFR (MDRD) Non-Af 82, BUN/Creatinine Ratio 17.0, Glucose 119 H, Calcium 8.7 10/30/21 18:45: PT 12.8, INR 1.0, APTT 27.6 10/31/21 04:45: WBC 11.9 H, RBC 4.37, Hgb 13.3, Hct 40.0, MCV 91.5, MCH 30.4, MCHC 33.3 D, Plt Count 236, MPV 9.7, Immature Gran % (Auto) 0.400, Neut % (Auto) 83.6 H, Lymph % (Auto) 10.7 L, [place] % (Auto) 5.2, Eos % (Auto) 0.0, Baso % (Auto) 0.1, Absolute Neuts (auto) 9.9 H, Nucleated RBC % 0 10/31/21 04:45: Sodium 140, Potassium 4.3, Chloride 107, Carbon Dioxide 29.0, Anion Gap 4 L, BUN 9, Creatinine 0.72, Est GFR (MDRD) Af Amer 106, Est GFR (MDRD) Non-Af 87, BUN/Creatinine Ratio 12.4, Glucose 124 H, Calcium 8.6, Magnesium 2.0, Triglycerides 65, Cholesterol 303 H, LDL Cholesterol 232 H, VLDL Cholesterol 13, HDL Cholesterol 58 10/31/21 04:45: APTT 45.0 H Rhythm: EKG: ECHO: Stress Test: Cardiac Cath: PCI: CT Surgery: Holter monitor: EPS: PPM: CXR: Chest CT Scan: Radiography Diagnostic Testing: Radiology Impression Chest X-Ray 10/30/21 19:00 IMPRESSION: No acute cardiopulmonary process. Electronically Signed: Mack Clarke MD at 19:52 EDT ,
--- NOTE | 2021-10-31 16:02 | DS.PCM_ITS ---
Providers Date of Admission: 10/30/21 Primary Care Physician: NIKKO Melgoza Consultations 10/30/21 23:00 Consult: Cardiology Routine Consulting Provider: Bella Gonzalez Reason for Consult: NSTEMI EMERGENT Consult: No MD Notified: Yes Date Notified: 10/29/21 Time Notified: 18:55 Method of Notification: ED Physician Initiated Method of Consult:: In-Person Reason For Visit: NSTEMI Diagnosis Discharge Diagnosis (1) NSTEMI, initial episode of care: Status: Acute Code(s): I21.4 - Non-ST elevation (NSTEMI) myocardial infarction (2) Hyperlipemia: Status: Acute Code(s): E78.5 - Hyperlipidemia, unspecified Plan Patient is a 61-year-old female who presented with chest pain. Was found to hav e elevated troponin as well as ischemic changes on EKG consistent with acute non-STEMI admitted to the intensive care unit for further management 1. Acute non-STEMI ? Patient has been admitted to the intensive care unit currently being managed with systemic anticoagulation with heparin, high-dose statin therapy, aspirin therapy. Consult placed to cardiology with plans for patient to undergo left heart catheterization with intervention if warranted 2. Hypokalemia ? Corrected per protocol with serial potassium levels ordered 3. Dyspepsia ? Patient to undergo work-up as outpatient 4. DVT prophylaxis ? Patient is on heparin Medications at Discharge Home Medications amlodipine 5 mg tablet 5 mg PO DAILY #90 tabs 10/31/21 aspirin 81 mg tablet,delayed release 81 mg PO BREAKFAST #90 tabs 10/31/21 atorvastatin 40 mg tablet 40 mg PO DAILY #90 tabs 10/31/21 pantoprazole 40 mg tablet,delayed release (Protonix) 40 mg PO DAILY #90 tabs 10/31/21 Hospital Course Summary of Care Provided Minutes Spent on Discharge: 35 Hospital Course: Patient is a 61-year-old female who presented with chest pain.? Was found to have elevated troponin as well as ischemic changes on EKG consistent with acute non-STEMI admitted to the intensive care unit for further management 1.? Acute non-STEMI ? Patient has been admitted to the intensive care unit currently being managed with systemic anticoagulation with heparin, high-dose statin therapy, aspirin therapy.? Consult placed to cardiology with plans for patient to undergo left heart catheterization with intervention if warranted ? Patient underwent left heart catheterization which did not demonstrate any hemodynamically obstructive lesions. Patient was discharged on statin therapy aspirin as well as amlodipine 5 mg daily. 2.? Hypokalemia ? Corrected per protocol with serial potassium levels ordered 3.? Dyspepsia ? Patient to undergo work-up as outpatient ? Patient was discharged home with Protonix with plans for patient to follow-up with PCP for referral for possible EGD as outpatient 4.? DVT prophylaxis ? Patient is on heparin Physical Exam Narrative GENERAL: cooperative HEENT: Atraumatic; EYES; Anicteric, Normal Conjunctiva NECK; supple, normal thyroid, RESPIRATORY: Diminished to auscultation CARDIOVASCULAR: Regular S1 S2, GI: soft, normoactive bowel sounds, : No Renal angle tenderness; EXTREMITIES: No edema, no clubbing, MUSCULOSKELETAL: no muscle wasting NEURO: Awake; no lateralizing signs. SKIN: No Rash PSYCH; Flat affect Weight / BMI Weight Weight: 63.7 kg Body Mass Index (BMI) 28.0 ABG / Lab / Microbiology Data Result Diagrams: 10/31/21 04:45 10/31/21 04:45 Laboratory: Laboratory Results - last 24 hr 10/30/21 18:45: WBC 7.3, RBC 4.72, Hgb 15.0, Hct 42.4, MCV 89.8, MCH 31.8, MCHC 35.4, RDW Std Deviation 39.7, RDW Coeff of Elisha 12.0, Plt Count 253, MPV 10.2, Immature Gran % (Auto) 0.400, Neut % (Auto) 52.6, Lymph % (Auto) 37.9, [place] % (Auto) 7.1, Eos % (Auto) 1.9, Baso % (Auto) 0.1, Absolute Neuts (auto) 3.8, Absolute Lymphs (auto) 2.76, Nucleated RBC % 0 10/30/21 18:45: D-Dimer Quant (PE/DVT) < 0.27 L 10/30/21 18:45: Sodium 137, Potassium 2.7 L*, Chloride 101, Carbon Dioxide 26.0, Anion Gap 10, BUN 13, Creatinine 0.77, Estim Creat Clear Calc 86.56, Est GFR (MDRD) Af Amer 99, Est GFR (MDRD) Non-Af 82, BUN/Creatinine Ratio 17.0, Glucose 119 H, Calcium 8.7, Troponin I High Sens 47 10/30/21 18:45: PT 12.8, INR 1.0, APTT 27.6 10/30/21 21:05: Troponin I High Sens 122 H* 10/31/21 01:00: Troponin I High Sens 129 H* 10/31/21 04:45: WBC 11.9 H, RBC 4.37, Hgb 13.3, Hct 40.0, MCV 91.5, MCH 30.4, MCHC 33.3 D, RDW Std Deviation 40.9, RDW Coeff of Elisha 12.1, Plt Count 236, MPV 9.7, Immature Gran % (Auto) 0.400, Neut % (Auto) 83.6 H, Lymph % (Auto) 10.7 L, [place] % (Auto) 5.2, Eos % (Auto) 0.0, Baso % (Auto) 0.1, Absolute Neuts (auto) 9.9 H, Absolute Lymphs (auto) 1.27, Nucleated RBC % 0 10/31/21 04:45: Sodium 140, Potassium 4.3, Chloride 107, Carbon Dioxide 29.0, Anion Gap 4 L, BUN 9, Creatinine 0.72, Estim Creat Clear Calc 60.43, Est GFR (MDRD) Af Amer 106, Est GFR (MDRD) Non-Af 87, BUN/Creatinine Ratio 12.4, Glucose 124 H, Calcium 8.6, Magnesium 2.0, Triglycerides 65, Cholesterol 303 H, LDL Cholesterol 232 H, VLDL Cholesterol 13, HDL Cholesterol 58 10/31/21 04:45: APTT 45.0 H Radiography Diagnostic Testing: Radiology Impression Chest X-Ray 10/30/21 19:00 IMPRESSION: No acute cardiopulmonary process. Electronically Signed: Mack Clarke MD at 19:52 EDT , D/C Instructions Discharge Diet: No restrictions Discharge Activity: Return to Normal Activity Call your doctor if you observe: Fever of 101 or Higher, Shortness of breath, Fainting spells and Chest pain Meaningful Use Info Meaningful Use Diagnoses (Choose all that apply): None applicable Discharge Plan Admission Admit Date/Time: 07/10/22 21:57 Attending Provider: Demario Gandhi Primary Care Provider: Paige Stoll Consulting Providers: Bella Gonzalez ; Jamison Nunez Discharge Orders/Prescriptions Prescriptions: New atorvastatin 40 mg tablet 40 mg PO DAILY Qty: 90 0RF pantoprazole [Protonix] 40 mg tablet,delayed release (DR/EC) 40 mg PO DAILY Qty: 90 0RF aspirin 81 mg Tablet,Delayed Release (Dr/Ec) 81 mg PO BREAKFAST Qty: 90 0RF amlodipine 5 mg tablet 5 mg PO DAILY Qty: 90 0RF Referrals / Follow Up: Roberto Schuler MD [STAFF PHYSICIAN] - Within 1 Month Paige Stoll PA [Primary Care Provider] - Within 1 Week Disposition Disposition (needs filled in before D/C Order can be placed): Home, Self Care Charges/Coding Visit Charges Inpatient E&M: 34545 Disch Hosp
--- NOTE | 2021-10-31 16:06 | CL.D_ITS ---
Patient Name: MARLEN KEATING Study Date: 10/31/2021 Performing: Roberto Schuler MD Ht: 59 inches 150 cm : 1960 Wt: 141.3 lbs 64 kg Age: 61 Gender: female BSA: 1.59 PROCEDURE(S) PERFORMED [id number])[facility] CLINICAL PROFILE AND INDICATIONS Indications: Worsening Angina Heart Failure: None Stress/Imaging Stress/Image Study Performed: No CONCLUSIONS Normal coronary arteries RECOMMENDATIONS Medical therapy DESCRIPTION OF PROCEDURE The patient arrived to the procedure lab. The risks and benefits of the procedure as well as a full d escription of our services here and current unavailability of surgical backup were fully explained to the patient and/or their significant other prior to the catheterization. The Timeout was completed, verifying the correct patient and procedure. The patient's procedural site was prepped and draped in the usual fashion. Local anesthetic was given subcutaneously to right radial region with Lidocaine 2% . Local anesthetic was given subcutaneously to right groin region with Lidocaine 2%. Using a modified Seldinger technique, arterial access was obtained via the right radial artery, a 6Fr sheath was inse rted., arterial access was obtained via the right femoral artery, a 5Fr sheath was inserted. Left Co ronary Artery selective angiography was performed in multiple views using a 5 Fr. JL4 catheter. Right Coronary Artery selective angiography was then performed in multiple views using a 5 Fr. JR 4 catheter. Left Ventriculography was performed in TAYLOR projection using a 5 Fr. Pigtail catheter. LV to AO pullback pressures were then recorded.The radial arterial sheath was pulled and a TR Band wa s applied for hemostasis. The femoral arterial sheath was pulled and a Mynx closure device was deploy ed for hemostasis CORONARY ANGIOGRAPHY DOMINANCE: Right Dominant LEFT HEART ASSESSMENT Left Ventricular Ejection Fraction: by LV Gram 65 % Normal LV wall motion Normal Left Ventricular systolic function LEFT MAIN: Angiographically normal LEFT ANTERIOR DESCENDING ARTERY: Angiographically normal CIRCUMFLEX ARTERY: Angiographically normal RIGHT CORONARY ARTERY: Angiographically normal Mid to distal portion of posterior descending artery appears to have an intramyocardial portion which narrows with each heartbeat contraction. COMPLICATIONS No Complications PROCEDURE MEDICATIONS Versed 1 mg IV Fentanyl 50 mcg IV Versed 1 mg IV Fentanyl 25 mcg IV Fentanyl 25 mcg IV Versed 1 mg IV Oxygen: 2 L/min via nasal cannula Heparin given IA 10/31/2021 15:11:00 Nitro 100 mcg IC 10/31/2021 15:20:13 Verapamil 2.5mg, Ntg 100mcgs, 2000 units of Heparin given IA 10/31/2021 15:11:00 SUMMARY OF HEMODYNAMIC DATA Time AIR REST ECG 14:57:21 Art 144/61 (85) 15:05:58 AO 127/66 (86) SA 15:13:19 LV 103/17, 22 15:32:58 LV 132/24, 30 15:33:05 LV 117/19, 22 15:33:17 LV 105/13, 21 15:33:42 LV 93/15, 21 15:33:49 LVp 97/12, 19 15:33:54 AOp 104/6 (57) 15:33:59 Signed By Roberto Schuler MD On 10/31/2021 4:05:57 PM Roberto Schuler MD
[2021-10-31] MEDS: 0.9% Normal Saline 1,000 ML 75 ML IV (16:07)
[2021-10-31] MEDS: Acetaminophen 325 MG Tablet 650 MG PO (16:58)
--- NOTE | 2021-10-31 20:38 | NURSING ---
Discharge packet given to pt, discharge instructions including medications reviewed with pt and . Pt and verbalize understanding. Walked pt to end of hallway and back, post cath sites dry intact, no bleeding or hematoma. Pt denies dizziness, chest pain, and nausea. Pt discharged home with .
== END 2021-10-31 20:40 | disposition home or self-care (01) | DRG 282 ==
LOC: ED 19:22 → ICU 23:00
PROVIDERS: Admitting Provider Hospitalist; Emergency Provider Student in an Organized Health Care Education/Training Program; PCP Physician Assistant; Visit Provider Internal Medicine
DX: I21.4 Non-ST elevation (NSTEMI) myocardial infarction (principal); E78.5 Hyperlipidemia, unspecified; I45.10 Unspecified right bundle-branch block; E87.6 Hypokalemia; K21.9 Gastro-esophageal reflux disease without esophagitis
CPT/HCPCS: 71045; 80048; 80061; 83735; 84484; 85025; 85379; 85610; 85730; 93005; 93458; 99152; 99153; 99285; C1760; J7030; Q9967; A4216; C1769; C1894; J2405

== ENCOUNTER → 2022-04-26 | Outpatient (CLI) | payer SELFPAY ==
--- NOTE | 2022-04-26 12:21 | US_ITS ---
STUDY: ULTRASOUND OF THE FEMALE PELVIS - COMPLETE REASON FOR EXAM: Female, 62 years old. Ovarian cyst. LMP: The patient is postmenopausal. TECHNIQUE: Transabdominal and Transvaginal TECHNICAL QUALITY: Adequate. COMPARISON: None. FINDINGS: The uterus is anteverted and is in a midline position. The uterus measures 10.3 cm x 5.1 cm x 3.3 cm. There is a Nabothian cyst of the cervix. The endometrium is thickened and measures 4 mm in thickness, and is hyperechoic. There is no demonstrated endometrial mass. Heterogeneous echotexture of the myometrium suggestive of fibroid change. I.U.D. - The patient does not have an I.U.D. The right ovary is visualized. The right ovary measures 4.8 cm x 5 cm x 2.8 cm. There is a 3.7 cm x 3.3 cm x 2.2 cm right ovarian cyst. There is no visualized right adnexal mass or complex lesion. There is normal arterial and normal venous vascularity. The left ovary is visualized. The left ovary measures 2.2 cm x 1.4 cm x 0.9 cm. There is no left ovarian cyst or ovarian mass. There is no visualized left adnexal mass or complex lesion. There is normal arterial and normal venous vascularity. There is no fluid in the cul-de-sac. The pre void volume of the bladder was 502 ml. Polycystic ovary disease: No. US/Pelvic (Non ) IMPRESSION: Mild thickening of the endometrium. Heterogeneous echotexture of the myometrium. 3.7 cm x 3.3 cm x 2.2 cm right ovarian cyst. Electronically Signed: Gregory Colby MD at 15:41 EST ,
== END | disposition home or self-care (01) ==
PROVIDERS: PCP Physician Assistant; Referring Provider Obstetrics & Gynecology; Visit Provider Obstetrics & Gynecology
DX: N83.202 Unspecified ovarian cyst, left side (principal)
CPT/HCPCS: 76830; 76856

== ENCOUNTER → 2022-06-27 | Outpatient (CLI) | payer SELFPAY ==
--- NOTE | 2022-06-27 08:23 | US_ITS ---
ACR Level 3 findings have been noted. An addendum which confirms receipt of the report will follow. INDICATION: ovarian cyst EXAMINATION: US Pelvis Non OB Complete With Transvaginal Imaging TECHNIQUE: Transabdominal and transvaginal pelvic ultrasound was performed. Grayscale, spectral waveform, and color flow Doppler evaluation of the adnexa. COMPARISON: 04/26/2022. FINDINGS: UTERUS: Anteverted. The uterus measures 10.4 x 5 x 3.4 cm. There is no uterine mass. The endometrial stripe measures 3 mm in AP diameter which is within normal limits. RIGHT OVARY: Measures 1.7 x 1.6 x 1.7 cm. Non-enlarged, normal echogenicity. There is normal arterial inflow and venous outflow present in the right ovary. Difficult to visualize the right ovary. Previously described cyst in the right ovary is not visualized on this examination. LEFT OVARY: Complex solid and cystic structure in the left adnexa measures 5.8 x 4.9 x 4.1 cm could represent the left ovary containing a 5 cm complex solid and cystic mass. Alternatively, this could represent bowel. There is normal arterial inflow and venous outflow present in the questionable left ovary. FREE FLUID: None. US/Pelvic (Non ) IMPRESSION: Difficult to visualize the right ovary. Previously described cyst in the right ovary is not appreciated on this examination. Complex 6 cm solid and cystic structure in the left adnexa could represent the left ovary containing a 5 cm complex solid and cystic mass. Alternatively, this could represent bowel. Recommend short-term follow-up pelvic ultrasound in 3-4 weeks. Electronically Signed: Urban Thorne MD at 23:31 EST ,
== END | disposition home or self-care (01) ==
PROVIDERS: PCP Physician Assistant; Visit Provider Obstetrics & Gynecology
DX: N83.202 Unspecified ovarian cyst, left side (principal)
CPT/HCPCS: 76830; 76856

== ENCOUNTER → 2022-07-21 | Outpatient (CLI) | payer SELFPAY ==
--- NOTE | 2022-07-21 17:30 | MRI_ITS ---
STUDY: MR PELVIS WITH T WITHOUT CONTRAST REASON FOR EXAM: Female, 62 years old. Possible ovarian mass TECHNIQUE: Standardized fat and water weighted pulse sequences were obtained in all 3 orthogonal planes, pre-and post contrast administration. IV CLARISCAN 11mL was administered for the contrast portion of the examination. COMPARISON: Ultrasound June 27, 2022 and April 26, 2022. FINDINGS: Normal urinary bladder. Normal visualized small intestine. Normal visualized colon. Normal visualized uterus. There is no pelvic fluid. There is 3.4 x 3.3 cm septated cyst of the left ovary. There is adjacent 1.9 x 1.5 cm cyst. Normal visualized pelvic arteries. Normal osseous structures. Normal abdominal wall. MRI/Pelvis W/WO Contrast IMPRESSION: Complex, septated left ovarian cyst. Electronically Signed: Hieu Long MD at 15:10 EDT ,
[2022-07-21 17:55] LABS: CREATININE FINGERSTICK < 0.9 mg/dL (0.55-1.02); EGFR FINGERSTICK > 60.0000 mL/min (>60)
== END | disposition home or self-care (01) ==
PROVIDERS: PCP Physician Assistant; Referring Provider Obstetrics & Gynecology; Visit Provider Obstetrics & Gynecology
DX: N83.8 Other noninflammatory disorders of ovary, fallopian tube and broad ligament (principal)
CPT/HCPCS: 72197; A9575

== ENCOUNTER → 2022-10-05 | Outpatient (CLI) | payer SELFPAY ==
[2022-10-07 04:07] LABS: Cancer Antigen 125 17.7 U/mL (0.0-38.1); Carcinoembryonic Antigen 1.5 ng/mL (0.0-4.7)
== END | disposition home or self-care (01) ==
PROVIDERS: PCP Physician Assistant; Referring Provider Nurse Practitioner Women's Health; Visit Provider Nurse Practitioner Women's Health
DX: N83.202 Unspecified ovarian cyst, left side (principal)
CPT/HCPCS: 36415; 82378; 86304

== ENCOUNTER → 2022-10-30 | Outpatient (CLI) | payer SELFPAY ==
--- NOTE | 2022-10-30 13:30 | US_ITS ---
INDICATION: ovarian cyst -LEFT -- PREVIOUS MRI 07/21/22 -- PREVIOUS US 06/27/22 EXAMINATION: Ultrasound US Pelvis Non OB Complete With Transvaginal Imaging COMPARISON: Pelvic ultrasound 06/27/2022 and pelvic MRI 07/21/2022. Pelvic ultrasound report only 04/26/2022 FINDINGS: 74 grayscale ultrasound images of the pelvis obtained both transabdominally and transvaginally. In addition dedicated ovarian color Doppler and Doppler waveform interrogation was performed. UTERUS: Uterus measures : 9.6 x 5.1 x 3.6 cm. Endometrial thickness of 0.4 cm. Myometrium is unremarkable. ADNEXA: Flow is documented to bilateral ovaries by color Doppler as well as Doppler waveform. Large multiloculated left ovarian complex septated cyst measuring up to 5.3 cm. This previously measured up to 4.7 cm 4 months prior and 3.7 cm 6 months prior. Right ovary is not visualized. Adequately distended urinary bladder is unremarkable. No significant free fluid. US/Pelvic (Non ) IMPRESSION: Continued interval increase in size of multiloculated left ovarian complex septated cyst from 4 months and 6 months prior. Cystic malignancy is not excluded in this postmenopausal patient. Follow-up repeat pelvic MRI may provide more direct size comparison. Right ovary is not visualized. Electronically Signed: Dick Beltran MD at 1:14 EDT ,
== END | disposition home or self-care (01) ==
LOC: OPUS 13:25
PROVIDERS: PCP Physician Assistant; Referring Provider Obstetrics & Gynecology; Visit Provider Obstetrics & Gynecology
DX: N83.202 Unspecified ovarian cyst, left side (principal); Z78.0 Asymptomatic menopausal state
CPT/HCPCS: 76830; 76856

== ENCOUNTER → 2023-08-07 | Outpatient (CLI) | payer SELFPAY ==
[2023-08-07 09:33] LABS: Erythrocyte Sedimentation Rate < 1 mm/hr (0-30)
[2023-08-07 09:58] LABS: Hemoglobin A1c 5.2 % (3.8-5.6)
[2023-08-07 10:10] LABS: Vitamin B12 645 pg/mL (211-911)
[2023-08-07 11:00] LABS: Amylase 69 U/L (25-115); CRP < 2.90 mg/L (0.0-3.0); Free T3 3.1 pg/mL (2.18-3.98); Iron Binding Capacity,Total 315 ug/dL (250-450); LDH 149 U/L (84-246); T4 Free Direct 1.16 ng/dL (0.76-1.46); Thyroid Stim Hormone (TSH) 1.66 uIU/mL (0.358-3.74); Triglycerides 63 mg/dL
[2023-08-07 13:30] LABS: Lipase 44 U/L (13-75)
[2023-08-12 00:13] LABS: Anti-Centromere B Ab <0.2 AI (0.0-0.9); Anti-Chromatin <0.2 AI (0.0-0.9); Anti-Jo <0.2 AI (0.0-0.9); Anti-Scleroderma-70 AB <0.2 AI (0.0-0.9); Anti-dsDNA Ab <1 IU/mL (0-9); Beef 0.64 kU/L (Class II); Chocolate <0.10 kU/L (Class 0); Codfish <0.10 kU/L (Class 0); Corn <0.10 kU/L (Class 0); Egg, Whole <0.10 kU/L (Class 0); Milk (Cow) 0.82 kU/L (Class II); Mussels <0.10 kU/L (Class 0); Peanut <0.10 kU/L (Class 0); Pork 0.57 kU/L (Class II); RNP Ab <0.2 AI (0.0-0.9); SJOGREN'S Anti-SS-A test < 0.2 AI (0.0-0.9); SJOGREN'S Anti-SS-B test < 0.2 AI (0.0-0.9); Salmon <0.10 kU/L (Class 0); Shrimp 0.64 kU/L (Class II); Smith Ab <0.2 AI (0.0-0.9); Soybean <0.10 kU/L (Class 0); Tuna <0.10 kU/L (Class 0); Vitamin D 1,25-Dihydroxy 39.1 pg/mL (24.8-81.5); Wheat <0.10 kU/L (Class 0)
[2023-08-13 13:07] LABS: Alpha-1-Globulins 0.2 g/dL (0.0-0.4); Alpha-2-Globulins 0.6 g/dL (0.4-1.0); Anti-Parietal Cell AB, QN 1.3 Units (0.0-20.0); Cytoplasmic Ab (C-ANCA) <1:20 titer (Neg:<1:20); Endomysial Antibody IgA Negative (Negative); Gamma Globulin 1.3 g/dL (0.4-1.8); Gastrin, Serum 19 pg/mL (0-115); IgG, Quant 1256 mg/dL (586-1602); Immunoglobulin A 44 mg/dL (87-352); Immunoglobulin E 86 IU/mL (6-495); Immunoglobulin G, Subclass 1 705 mg/dL (248-810); Immunoglobulin G, Subclass 2 397 mg/dL (130-555); Immunoglobulin G, Subclass 3 67 mg/dL (15-102); Immunoglobulin G, Subclass 4 1 mg/dL (2-96); Immunoglobulin M 69 mg/dL (26-217); PROEL- TOTAL PROTEIN 7.1 g/dL (6.0-8.5); Perinuclear Ab (P-ANCA) <1:20 titer (Neg:<1:20); t-Transglutaminase IgA <2 U/mL (0-3)
== END | disposition home or self-care (01) ==
LOC: LAB 08:34
PROVIDERS: PCP Physician Assistant; Referring Provider Internal Medicine Gastroenterology; Visit Provider Internal Medicine Gastroenterology
DX: K21.9 Gastro-esophageal reflux disease without esophagitis (principal)
CPT/HCPCS: 36415; 82150; 82533; 82607; 82652; 82784; 82785; 82787; 82941; 83036; 83516; 83550; 83615; 83690; 84165; 84439; 84443; 84478; 84481; 85652; 86003; 86005; 86140; 86225; 86235; 86255; 86256; 86316; 86334; 86340

== ENCOUNTER → 2023-08-27 | Outpatient (CLI) | payer SELFPAY ==
--- NOTE | 2023-08-27 09:52 | NM_ITS ---
CLINICAL: 63-year-old female with history of cholecystectomy with postoperative pain and suspected duodenal gastric reflux. RADIONUCLIDE HEPATOBILIARY SCINTIGRAPHY COMPARISON: None available FINDINGS: Following the intravenous administration of 5.4 mCi of 99m Tc Mebrofenin, hepatobiliary images reveal: 1. Relatively prompt and homogeneous radiopharmaceutical concentration is noted by a normal sized liver. No parenchymal defects are identified. 2. Gallbladder activity is not identified during 60 minutes of sequential imaging commensurate with known history of prior cholecystectomy. 3. Small intestinal tract is observed at approximately 19 minutes post radiopharmaceutical administration. 4. Washout of the radiopharmaceutical by the hepatic parenchyma appears qualitatively normal. 5. There is no evidence of a visualized bile leak identified during 60 minutes of sequential imaging. 6. Duodenal-gastric reflux appears evident at approximately 15-16 minutes following tracer injection. NM/Hepatobilliary Imaging IMPRESSION: 1. Nonvisualization of the gallbladder is consistent with prior cholecystectomy. 2. There is no scintigraphic evidence of bile leak. 3. Apparent duodenal-gastric reflux is demonstrated as defined above. Electronically Signed: Carlyle Rodríguez DO at 10:02 EDT ,
== END | disposition home or self-care (01) ==
PROVIDERS: PCP Physician Assistant; Referring Provider Internal Medicine Gastroenterology; Visit Provider Internal Medicine Gastroenterology
DX: K21.9 Gastro-esophageal reflux disease without esophagitis (principal)
CPT/HCPCS: 78226; A9537

== ENCOUNTER → 2023-08-29 | Outpatient (CLI) | payer SELFPAY ==
--- NOTE | 2023-08-29 10:24 | NM_ITS ---
CLINICAL: 63-year-old female with history of abdominal bloating. SEMI-SOLID PHASE 99m Tc SULFUR COLLOID GASTRIC EMPTYING STUDY COMPARISON: None available FINDINGS: The patient was administered 1.0 mCi of 99m Tc sulfur colloid mixed with oatmeal and consumed per os. Image acquisitions in the anterior-posterior projections were obtained for 60 minutes. There is prompt visualization of the stomach. There is no gastroesophageal reflux identified. First order kinetics are maintained throughout the duration of the acquisitions. The T ? linear fit was extrapolated to be 83.02 minutes, (Normal: 12-56 minutes). NM/Gastric Emptying Study IMPRESSION: 1. ABNORMAL 99m Tc sulfur colloid semi-solid phase (oatmeal) gastric emptying imaging examination. A. There is delayed semi-solid phase gastric emptying compared to normal controls with maintained first order kinetics throughout all components of the examination. (Tod et al, J Nucl Med Tech 38: 186, 2010). Electronically Signed: Carlyle Rodríguez DO at 9:09 EDT ,
== END | disposition home or self-care (01) ==
PROVIDERS: PCP Physician Assistant; Referring Provider Internal Medicine Gastroenterology; Visit Provider Internal Medicine Gastroenterology
DX: K21.9 Gastro-esophageal reflux disease without esophagitis (principal)
CPT/HCPCS: 78264; A9541